=== PATIENT | female | born 1935 | race Caucasian/White ===

== ENCOUNTER 2023-03-28 08:57 | Emergency (ER) | payer MEDICARE ==
[~2023-03-28] VITALS: Ht 172.7 cm; Wt 104.3 kg
[2023-03-28] MEDS ORDERED: TDAP DIPH,PERTUSS,TET VAC/PF 0.5 ML DISP.SYRIN IM ONE ×2 (09:15→09:22)
[2023-03-28] MEDS ORDERED: NEOMY/BACITRA/POLYMYXIN B OINT UD PACKET TP ONE ×2 (09:15→09:26)
--- NOTE | 2023-03-28 09:17 | NUR ---
BIB ambulance for c/o trip and fall, patient is alert and oriented x4, with c/o back pain and left posterior skin tear. MD was at bedside, informed of plan of care. Bedside EKG done for MD review. No s/s of any distress noted at this time. BUE/BLE with discoloration and scattered brusing noted, will continue to monitor and clean wound as per order. Side rails remain up with items in reach.
[2023-03-28] MEDS ORDERED: BACITRACIN ZINC OINT 15 GM TUBE ONE (09:22)
--- NOTE | 2023-03-28 09:36 | NUR ---
RADIOLOGY AT BEDSIDE, WOUND CARE DONE AND MEDICATED PER ORDER.
--- NOTE | 2023-03-28 09:44 | NUR ---
Patient off unit to CT via rney.
--- NOTE | 2023-03-28 10:18 | NUR ---
Patient has returned from CT, awaiting MD review. No change in primary assessment.
--- NOTE | 2023-03-28 10:35 | NUR ---
Patient off unit back to CT via gurney.
--- NOTE | 2023-03-28 10:51 | NUR ---
Returned from CT,awaiting review. Remains with no voiced c/o at this time.
--- NOTE | 2023-03-28 12:12 | NUR ---
Patient continues to rest without any c/o, awaiting MD re-eval.
--- NOTE | 2023-03-28 12:34 | NUR ---
Patient aware will be discharged, calling for transportation. Remains stable, [facility] given states understanding.
--- NOTE | 2023-03-28 12:41 | NUR ---
Patient will remain in room until ride comes.
[2023-03-28 12:43] VITALS: BP 118/76
--- NOTE | 2023-03-28 14:15 | NUR ---
PATIENT ASSISTED TO WAITING ROOM TO WAIT FOR RIDE THAT IS ON THE WAY.
== END 2023-03-28 14:15 | disposition home or self-care (01) ==
LOC: ER 08:57
DX: S51.812A Laceration without foreign body of left forearm, initial encounter (principal); R51.9 Headache, unspecified; R07.89 Other chest pain; I10 Essential (primary) hypertension; I25.10 Atherosclerotic heart disease of native coronary artery without angina pectoris; Z86.73 Personal history of transient ischemic attack (TIA), and cerebral infarction without residual deficits; W01.0XXA Fall on same level from slipping, tripping and stumbling without subsequent striking against object, initial encounter; Y93.89 Activity, other specified; Y92.89 Other specified places as the place of occurrence of the external cause; Y99.8 Other external cause status
CPT/HCPCS: 70450; 71045; 72170; 73090; 90715; 93005; A4663